=== PATIENT | female | born 2000 | race Caucasian/White ===

== ENCOUNTER 2020-04-05 15:02 | Emergency (ER) | payer OTHER, SELFPAY ==
[2020-04-05 15:10] VITALS: BP 133/75; PULSE 86; RESP 12; TEMP 36.7; O2SAT 100
--- NOTE | 2020-04-05 15:20 | ED.HA ---
HPI - Headache General Chief Complaint: Headache Stated Complaint: HEADACHE Time Seen by Provider: 04/05/20 15:03 Source: patient Mode of arrival: ambulatory Limitations: no limitations History of Present Illness HPI Narrative: 19-year-old female presents to [facility] care with complaints of headache since last night. Patient reports that the headache has improved after taking [id number] Tylenol. Patient reports history of migraines and her headache feels similar. Patient reports that she missed work today does need a work excuse. Patient denies dizziness, blurred vision, chest pain, shortness of breath, nausea, vomiting or diarrhea. MD elicited complaint: headache Onset (ago): day(s) (1) Quality & Timing: aching Exacerbating factors: none Relieving factors: nothing Associated symptoms: none Treatments prior to arrival: acetaminophen Related Data Home Medications Medication Instructions Recorded Confirmed bupropion HCl mg PO 04/05/20 lithium carbonate PO 04/05/20 Allergies Allergy/AdvReac Type Severity Reaction Status Date / Time NKDA Allergy Mild Uncoded 08/07/08 10:46 Review of Systems Constitutional: Constitutional: Denies chills, Denies fever(s) and Denies weakness ENT: Denies dysphagia, Denies epistaxis and Denies sore throat Cardiovascular: Cardiovascular: Denies chest pain, Denies rapid heart rate, Denies radiating jaw, neck or arm pain and Denies slow heart rate Respiratory: Respiratory: Denies cough, Denies dyspnea and Denies wheezing Gastrointestinal: Gastrointestinal: Denies abdominal pain and Denies nausea Integumentary/Breasts: Skin/Breast: Denies rash Neurologic: Denies confusion, Denies vertigo, Denies dizziness, Denies syncope, Reports headache(s), Denies focal weakness, Denies numbness and Denies weakness Endocrine: Endocrine: Denies fatigue PMFSH Past Medical History Medical History (Updated 04/05/20 @ 15:24 by Otilia Welch APRN) ADHD Bipolar 1 disorder, depressed, mild Social History Social History (Updated 04/05/20 @ 15:22 by Otilia Welch APRN) Gender identity (if verbalized by the patient): Female Comments At time of signature, I agree with nursing past medical, surgical, social and family history. There is no relevant family history pertinent to the presenting complaint. Exam Const: General: no acute distress and alert Nutritional Appearance: well nourished Orientation/consciousness: patient oriented x3 Eyes: Conjunctivae: conjunctivae normal and normal conjunctivae Pupils: Equal, round and reactive pupils present EOM: EOMs intact bilaterally Direct Ophthalmoscopy: no photophobia and No photophobia Neck: Neck: normal visual inspection Resp: Effort & Inspection: normal respiratory effort Auscultation: clear to auscultation bilaterally Cardio: Rate: regular rate, not bradycardic and not tachycardic Rhythm: regular rhythm Skin: General skin exam: normal color Rashes: no rashes Neuro: General: patient oriented x3, moves all extremities, no meningeal signs, no focal motor deficits and CN's II-XI intact bilaterally Cranial nerves: Yes Nystagmus not present Speech: normal speech Psych: Appearance: grossly normal Mental Status: mental status grossly normal Thought content: Yes Normal thought content present Course Vital Signs Vital signs: Vital Signs Temperature 36.7 C 04/05/20 15:10 Pulse Rate 86 04/05/20 15:10 Respiratory Rate 12 04/05/20 15:10 Blood Pressure 133/75 04/05/20 15:10 Pulse Oximetry 100 04/05/20 15:10 Temperature 36.7 C 04/05/20 15:10 Pulse Rate 86 04/05/20 15:10 Respiratory Rate 12 04/05/20 15:10 Blood Pressure 133/75 04/05/20 15:10 Pulse Oximetry 100 04/05/20 15:10 MDM - Headache MDM Narrative Medical decision making narrative: Patient agrees to rest, increase fluids and take [id number] Tylenol as needed. Work excuse provided for patient. Patient agrees to proceed to emergency
== END 2020-04-05 15:36 | disposition home or self-care (01) ==
PROVIDERS: Emergency Provider Nurse Practitioner Family; PCP Pediatrics
DX: R51.9 Headache, unspecified (principal); F31.9 Bipolar disorder, unspecified
CPT/HCPCS: 99211; G0463

== ENCOUNTER 2023-02-24 10:16 | Emergency (ER) | payer OTHER, SELFPAY ==
[2023-02-24 10:25] VITALS: BP 133/85; PULSE 75; RESP 18; TEMP 36.6; O2SAT 100
--- NOTE | 2023-02-24 10:46 | ED.HA ---
HPI - Headache General Chief Complaint: Headache Stated Complaint: migraine Time Seen by Provider: 02/24/23 10:25 History of Present Illness HPI Narrative: Patient is a 22-year-old female who presents ER with headache. Reports that is consistent with previous migraine headaches. It is located at the top of her head and bilateral temples. Began this morning. She endorses photophobia and phonophobia. No fevers or chills or sweats. Reports she has had increased stress over the weekend as she has been working hard at an [employer]. She has tried some medication that she received from a friend without any improvement. No trauma. Patient reports this morning she had some nausea and vomiting. She has no concern for . Related Data Home Medications Medication Instructions Recorded Confirmed bupropion HCl 150 mg 24 hr tablet, mg PO 04/05/20 extended release lithium carbonate 450 mg PO 04/05/20 tablet,extended release Allergies Allergy/AdvReac Type Severity Reaction Status Date / Time No Known Allergies Allergy Verified 02/24/23 10:24 Review of Systems Review of Systems: All systems reviewed & are unremarkable except as noted in HPI and below Constitutional: Constitutional: Denies chills, Reports fatigue and Denies fever(s) Eyes: Eyes: Denies change in vision and Reports photophobia ENT: Denies nasal congestion and Denies sore throat Gastrointestinal: Gastrointestinal: Denies abdominal pain, Denies diarrhea, Reports nausea and Reports vomiting Neurologic: Reports headache(s), Denies focal weakness and Denies numbness PMFSH Past Medical History Medical History (Updated 02/24/23 @ 12:21 by Warren Parish MD) ADHD Bipolar 1 disorder, depressed, mild Surgical History Surgical History (Updated 02/24/23 @ 10:50 by Warren Parish MD) No pertinent past surgical history Social History Social History (Updated 04/05/20 @ 15:22 by Otilia Welch APRN) Gender identity (if verbalized by the patient): Female Exam Narrative: GENERAL: Comfortable appearing, wearing sunglasses in a dark room, well-nourished, and in no acute distress. HEAD: Normocephalic, atraumatic. ENT: Mucous membranes moist. CHEST: Clear to auscultation. No respiratory distress. HEART: Regular rate and rhythm. Normal peripheral pulses. EXTREMITIES: Normal range of motion. No edema. SKIN: Warm, dry, no rash. NEURO: Alert and oriented x3. PSYCH: Normal mood and affect. Course Course Emergency Course: Headache resolved with cocktail. Vital Signs Vital signs: Vital Signs Temperature 97.8 F 02/24/23 10:25 Pulse Rate 75 02/24/23 10:25 Respiratory Rate 18 02/24/23 10:25 Blood Pressure 133/85 02/24/23 10:25 Pulse Oximetry 100 02/24/23 10:25 Oxygen Delivery Room Air 02/24/23 10:25 Temperature 97.8 F 02/24/23 10:25 Pulse Rate 101 H 02/24/23 12:39 Respiratory Rate 17 02/24/23 12:39 Blood Pressure 110/66 02/24/23 12:39 Pulse Oximetry 100 02/24/23 12:39 Oxygen Delivery Room Air 02/24/23 10:25 MDM - Headache MDM Narrative Medical decision making narrative: -Presentation: 22-year-old female presenting to the ER with a headache. -DDX includes but is not limited to: Migraine headache, intracranial hemorrhage, CVA. -Co-morbidities complicating care: Migraine headache history. -Social determinants of health: None -External Chart Review: 04/21, previous headache visit. -Hx from independent Sources: Patient -Independent interpretation of studies: None -Discussion of Management/Consultants: none -Dx tests considered but not ordered: none -Procedures: none -Interventions: Toradol 30 mg, Reglan 10 mg, Benadryl 25 mg, 1 L IV fluid. -Shared decision making / Disposition: Headache resolved. Discharge home. Follow-up with PCP -RX: None. Discharge Plan Discharge Clinical Impression: Migraine Patient Disposition: Home, Self-Care
[2023-02-24] MEDS: SODIUM CHLORIDE 0.9% IV 1,000 ML 999 ML IV CONT (11:05)
[2023-02-24] MEDS: diphenhydrAMINE HCl INJ 50 MG/ML VIAL 25 MG IV PUSH (11:06)
[2023-02-24] MEDS: KETOROLAC 30 MG/ML VIAL (*BKC) IV PUSH (11:07)
[2023-02-24] MEDS: METOCLOPRAMIDE HCL INJ 10 MG/2 ML VIAL IV PUSH (11:08)
[2023-02-24 11:12] VITALS: BP 110/65; PULSE 93; RESP 18; O2SAT 100
[2023-02-24 11:30] VITALS: BP 119/75; PULSE 92; RESP 16; O2SAT 100
[2023-02-24 12:39] VITALS: BP 110/66; PULSE 101; RESP 17; O2SAT 100
== END 2023-02-24 12:41 | disposition home or self-care (01) ==
PROVIDERS: Emergency Provider Emergency Medicine
DX: G43.909 Migraine, unspecified, not intractable, without status migrainosus (principal)
CPT/HCPCS: 96361; 96374; 96375; 99284; A4565; J1200; J1885; J2765; J7030

== ENCOUNTER 2025-04-24 01:03 | Emergency (ER) | payer OTHER, SELFPAY ==
--- NOTE | ~2025-04-24 | XR_ITS ---
Examination: XR chest 2V Clinical History: cough Comparison: None Technique: PA and Lateral Findings: Cardiomediastinal silhouette normal size and configuration. Lungs clear. No acute bony abnormality. IMPRESSION: 1. No acute cardiopulmonary findings. Reviewed, dictated and finalized at location R.
[2025-04-24 01:22] VITALS: BP 133/75; PULSE 119; RESP 18; TEMP 38.3; O2SAT 97
[2025-04-24 03:24] VITALS: BP 116/71; PULSE 96; RESP 18; TEMP 36.8; O2SAT 99
[2025-04-24] MEDS: ACETAMINOPHEN 500 MG TABLET 1000 MG PO (03:27)
[2025-04-24] MEDS: SODIUM CHLORIDE 0.9% IV 1,000 ML 999 ML IV CONT (03:27)
[2025-04-24 03:37] LABS: Add Urine Microscopic? YES; Appearance Urine Clear (Clear); Glucose Urine UA Negative (Negative); Leukocyte Esterase Ur Negative LEU/UL (Negative); Nitrate Urine Negative (Negative); Specific Grav Ur 1.013 (1.001-1.035)
[2025-04-24 03:41] LABS: Hematocrit 34.5 % (37.0-47.0); Hemoglobin 11.6 g/dL (12.0-15.0); Immature Granulocyte Percent A 0.3 % (0-0.5); Immature Platelet Fraction Pct 7.7 % (0.9-11.2); Lymphocytes Absolute Auto 0.87 K/mm3 (0.9-3.2); Mean Corpuscular HGB Conc 33.6 g/dl (32-36); Mean Corpuscular Hemoglobin 28.8 pg (26-34); Mean Corpuscular Volume 85.6 fl (80-100); Nucleated Red Blood Cells Absolute Auto 0.000 K/mm3 (0.0-0.012); Nucleated Red Blood Cells Perc 0.0 % (0.0-0.2); Platelet Count Result 88 k/mm3 (150-375); Red Blood Count 4.03 M/mm3 (4.2-5.4); White Blood Count 3.1 K/mm3 (4.5-10.0)
--- NOTE | 2025-04-24 03:44 | ED.FEVER ---
HPI - Fever General Chief Complaint: Fever Stated Complaint: im so sick-fever, -covid, -strep -rsv, -flu Time Seen by Provider: 04/24/25 03:06 History of Present Illness HPI Narrative: This is a 24-year-old female who presents to the ED for fevers, body aches. Patient states that for the past 4-5 days, she has been having fevers size 103.6. She was seen at pelvis will move more ill for this yesterday when she got fluids and a full workup that was apparently negative. She was discharged home feeling a little better. She states that today she slowed down taking the Tylenol and ibuprofen every 4 hours and her temperature went back up to 103.1 prompting her to come to the ED. She denies sore throat, chest pain, shortness of breath, cough, congestion, abdominal pain, changes in urination. She states that she was recently at a convention with many people but was not around anyone that was overtly ill. Related Data Home Medications ?Medication ?Instructions ?Recorded ?Confirmed ?Last Taken ?Type bupropion HCl 150 mg 24 hr tablet, mg PO 04/05/20 Unknown History extended release lithium carbonate 450 mg PO 04/05/20 Unknown History tablet,extended release Allergies Allergy/AdvReac Type Severity Reaction Status Date / Time No Known Allergies Allergy Verified 02/24/23 10:24 Review of Systems Review of Systems: Gen.: As per HPI Eyes: Denies eye pain or visual change ENT: Denies congestion Respiratory: Denies shortness of breath or cough CV: Denies chest pain or palpitations GI: Denies abdominal pain nausea, emesis or diarrhea denies burning, urgency, frequency or hematuria Musculoskeletal: Denies back pain or muscle pain Neuro: Denies numbness, tingling, weakness or focal weakness Skin: Denies rash Except as documented, all other systems reviewed and negative PMFSH Past Medical History Medical History Bipolar 1 disorder, depressed, mild ADHD Surgical History Surgical History No pertinent past surgical history Social History Social History Gender identity (if verbalized by the patient): Female Exam Narrative: APPEARANCE: No acute distress, nontoxic, resting in bed EYES: EOMI HEENT: Normocephalic, atraumatic, OMM. No oropharyngeal exudates or erythema. RESPIRATORY: No respiratory distress Clear to auscultation bilaterally with no rhonchi wheezing or rales. CARDIOVASCULAR: Regular rate and rhythm without murmurs rubs or gallops. ABDOMINAL: Soft, nontender, nondistended, no rebound or guarding MUSCULOSKELETAl: Moves all extremities. No clubbing, cyanosis or edema. NEURO: Awake and alert. Following commands, speech normal, no focal deficits SKIN:: Warm, dry. No rashes lesions or abrasions PSYCHIATRIC: Normal affect/mood, Course Vital Signs Vital signs: Vital Signs Temperature 101 F H 04/24/25 01:22 Pulse Rate 119 H 04/24/25 01:22 Respiratory Rate 18 04/24/25 01:22 Blood Pressure 133/75 04/24/25 01:22 Pulse Oximetry 97 04/24/25 01:22 Oxygen Delivery Room Air 04/24/25 01:22 Temperature 97.6 F 04/24/25 04:53 Pulse Rate 79 04/24/25 04:17 Respiratory Rate 18 04/24/25 04:17 Blood Pressure 119/66 04/24/25 04:17 Pulse Oximetry 99 04/24/25 04:17 Oxygen Delivery Room Air 04/24/25 03:24 MDM - Fever MDM Narrative Medical decision making narrative: 24-year-old female presenting for fever. Initial evaluation, patient was in no acute distress, afebrile, hemodynamically stable. She was noted to be febrile in triage but this had resolved by the time she was placed in a room. Heart and lungs clear. Abdomen soft nontender. Oropharynx clear. No obvious rashes. She did have a mild leukopenia with white count noted at 3.1. Mild thrombocytopenia at 88. Mild transaminitis with AST at 1:13 a.m. and ALT at 85. UA clear. COVID/flu/RSV negative. Chest x-ray obtained which showed no acute process. As patient was feeling better, she was deemed her for discharge at this time. She was educated on Tylenol and ibuprofen use. She was advised follow-up with her PCP in the next week for re-evaluation. Patient was agreeable to this plan. Given strict return precautions. On chart review after the fact, if patient does return, she may benefit mono testing given atypical leukocytes with leukopenia. Differential Diagnosis Differential diagnosis: Likely fever of unknown origin, community acquired pneumonia, pyelonephritis, viral infection and influenza Medical Records Attestation: I reviewed the patient's medical records. Lab Data Attestation: I reviewed the patient's lab results. 04/24/25 03:28 04/24/25 03:28 Labs: Lab Results 04/24/25 04/24/25 Range/Units 03:28 03:55 WBC 3.1 L (4.5-10.0) K/mm3 RBC 4.03 L (4.2-5.4) M/mm3 Hgb 11.6 L (12.0-15.0) g/dL Hct 34.5 L (37.0-47.0) % MCV 85.6 (80-100) fl MCH 28.8 (26-34) pg MCHC 33.6 (32-36) g/dl RDW 12.5 (11.5-14.5) % Plt Count 88 L (150-375) k/mm3 MPV 11.8 H (7.4-10.4) fl Immature Gran % (Auto) 0.3 (0-0.5) % Neut % (Auto) 62.8 (45.5-73.1) % Lymph % (Auto) 28.4 (18.3-44.2) % [place] % (Auto) 7.8 (2.6-8.5) % Eos % (Auto) 0.0 (0-4.4) % Baso % (Auto) 0.7 (0.2-1.2) % Lymph # (Auto) 0.87 L (0.9-3.2) K/mm3 [place] # (Auto) 0.2 (0.1-0.6) K/mm3 Eos # (Auto) 0.0 (0-0.3) K/mm3 Baso # (Auto) 0.0 (0.0-0.1) K/mm3 Abs Immat Gran (auto) 0.01 (0.00-0.031) K/mm3 Absolute Neuts (auto) 1.9 (1.3-6.7) K/mm3 Absolute Nucleated RBC 0.000 (0.0-0.012) K/mm3 Band Neutrophils % Not Reportable Nucleated RBC % 0.0 (0.0-0.2) % Atypical Lymphocytes Present Platelet Estimate Decreased (Adequate) % Immature Plt Fraction 7.7 (0.9-11.2) % Anisocytosis 1+ Schistocytes None seen Sodium 134 L (137-145) mmol/L Potassium 3.4 (3.4-5.0) mmol/L Chloride 103 (98-107) mmol/L Carbon Dioxide 24 (22-30) mmol/L Anion Gap 7 (4-12) mmol/L BUN 6 L (7-17) mg/dL Creatinine 0.64 L (0.7-1.0) mg/dL Estim Creat Clear Calc 150 ml/min Estimated GFR > 60 (59 - ) Glucose 142 H (65-110) mg/dL Calcium 8.6 (8.4-10.2) mg/dL Total Bilirubin 1.0 (0.2-1.3) mg/dL AST 113 H (14-36) U/L ALT 85 H (6-35) U/L Alkaline Phosphatase 178 H (38-126) U/L Total Protein 7.1 (6.3-8.2) g/dL Albumin 3.9 (3.5-5.1) g/dL Urine Color Yellow (Yellow) Urine Appearance Clear (Clear) Urine pH 7.5 (5.0-9.0) Ur Specific [place] 1.013 (1.001-1.035) Urine Protein Negative (Negative) mg/dL Urine Glucose (UA) Negative (Negative) mg/dL Urine Ketones Negative (Negative) mg/dL Ur Blood (Man) Negative (Negative) Urine Nitrate Negative (Negative) Urine Bilirubin Negative (Negative) Urine Urobilinogen 2.0 H (<2.0) mg/dL Leukocyte Esterase Rfl Negative (Negative) SETH/UL POC Urine HCG, Qual Negative (Negative) Influenza A (RT-PCR) Negative (Negative) Influenza B (RT-PCR) Negative (Negative) RSV (RT-PCR) Negative (Negative) SARS-CoV-2 RNA (RT-PCR) Negative (Negative) Imaging Data Attestation: I personally reviewed and interpreted this imaging study as follows: My impression: Chest x-ray: Normal cardiac silhouette, no consolidations, no pleural effusions, no pulmonary vascular congestion Radiologist's impression: Impressions Chest X-Ray 04/24/25 06:16 IMPRESSION: 1. No acute cardiopulmonary findings. Discharge Plan Discharge Clinical Impression: Fever of unknown origin Patient Disposition: Home Condition: Stable Instructions: Antibiotic Form, Fever in Adults (ED) Additional Instructions: Follow-up with your PCP in the next week for re-evaluation. Take Tylenol and ibuprofen as instructed below. Return to the ED for any new or worsening symptoms. For pain, discomfort or temperature greater than or equal to 100.8 ?F please alternate the following 2 medications as needed. First medication- acetaminophen/Tylenol- 1000mg every 6-8 hours as needed for above indications. Second medication- ibuprofen/Motrin-600mg every 6-8 hours as needed for above indication. Patient Language: Albanian Prescriptions: No Action lithium carbonate 450 mg tablet extended release PO bupropion HCl 150 mg tablet extended release 24 hr PO Follow-up/Referrals: PHYSICIAN NOT ON STAFF,NONSTAFF [Primary Care Provider] Stand Alone Forms: Work/School Release IP
[2025-04-24 03:50] LABS: Alanine Aminotransferase 85 U/L (6-35); Albumin Level 3.9 g/dL (3.5-5.1); Alkaline Phosphatase 178 U/L (38-126); Anion Gap 7 mmol/L (4-12); Aspartate Amino Transferase 113 U/L (14-36); Bilirubin,Total 1.0 mg/dL (0.2-1.3); Blood Urea Nitrogen 6 mg/dL (7-17); Calcium 8.6 mg/dL (8.4-10.2); Carbon Dioxide 24 mmol/L (22-30); Chloride 103 mmol/L (98-107); Estimated CRCL calculation 150 ml/min; Estimated Glomerular Filt Rate > 60; Glucose 142 mg/dL (65-110); Potassium 3.4 mmol/L (3.4-5.0); Sodium 134 mmol/L (137-145); Total Protein 7.1 g/dL (6.3-8.2)
[2025-04-24 03:55] VITALS: TEMP 36.7
[2025-04-24 03:58] LABS: BEDSIDEPREGUCG Negative (Negative)
[2025-04-24 04:11] LABS: Anisocytosis 1+
[2025-04-24 04:12] LABS: Influenza A QL RT-PCR Negative (Negative); Influenza B QL RT-PCR Negative (Negative); RSV RNA, RT-PCR Negative (Negative); SARS-CoV-2 RNA PCR Negative (Negative); Schistocytes None Seen
[2025-04-24 04:17] VITALS: BP 119/66; PULSE 79; RESP 18; O2SAT 99
[2025-04-24 04:53] VITALS: TEMP 36.4
== END 2025-04-24 04:56 | disposition home or self-care (01) ==
PROVIDERS: Emergency Provider Student in an Organized Health Care Education/Training Program
DX: R50.9 Fever, unspecified (principal); F31.9 Bipolar disorder, unspecified; F90.9 Attention-deficit hyperactivity disorder, unspecified type; Z20.822 Contact with and (suspected) exposure to COVID-19
CPT/HCPCS: 36415; 71046; 80053; 81001; 81025; 85025; 85055; 87637; 96360; 99283; A9270; J7030